=== PATIENT | male | born 1965 | race Caucasian/White ===

== ENCOUNTER 2023-04-19 18:16 | Inpatient (IN) | payer MEDICAID ==
[~2023-04-19] VITALS: Ht 172.7 cm; Wt 57.2 kg
[2023-04-19 19:09] LABS: BASOPHILS # (AUTO) 0.2 X10'3 (0-0.2); BASOPHILS % (AUTO) 1.9 % (0-1); EOSINOPHILS # (AUTO) 0.3 X10'3 (0-0.9); HEMATOCRIT 43.9 % (42.0-52.0); HEMOGLOBIN 14.7 g/dl (14.0-17.9); LYMPHOCYTES # (AUTO) 2.6 X10'3 (1.1-4.8); LYMPHOCYTES % (AUTO) 30.3 % (21-51); MEAN CORPUSCULAR HEMOGLOBIN 30.7 PG (27.0-31.0); MEAN CORPUSCULAR HGB CONC 33.6 g/dL (33.0-36.5); MEAN CORPUSCULAR VOLUME 91.6 FL (78-98); MEAN PLATELET VOLUME 7.9 FL (7.4-10.4); MONOCYTES # (AUTO) 0.3 X10'3 (0-0.9); MONOCYTES % (AUTO) 3.6 % (2-12); NEUTROPHILS # (AUTO) 5.3 X10'3 (1.8-7.7); NEUTROPHILS % (AUTO) 61.2 % (42-75); PLATELET COUNT 141 X10'3 (140-440); RED BLOOD COUNT 4.79 X10'6 (4.70-6.10); RED CELL DISTRIBUTION WIDTH 13.7 % (11.5-14.5); WHITE BLOOD COUNT 8.6 X10'3 (4.5-11.0)
[2023-04-19 19:32] LABS: ALANINE AMINOTRANSFERASE 14 U/L (12-78); ALBUMIN 3.7 G/DL (3.4-5.0); ALBUMIN/GLOBULIN RATIO 1.1 (1.1-1.5); ALKALINE PHOSPHATASE 97 IU/L (46-116); ANION GAP 5 (8-16); ASPARTATE AMINO TRANSFERASE 17 U/L (10-37); BILIRUBIN,TOTAL 0.3 MG/DL (0.1-1.0); BLOOD UREA NITROGEN 17 MG/DL (7-18); BUN/CREATININE RATIO 14.9 (10.0-20.0); CALCIUM 9.1 MG/DL (8.5-10.1); CHLORIDE 104 MMOL/L (99-107); CREATININE 1.14 MG/DL (0.60-1.10); GLUCOSE 131 MG/DL (70-104); POTASSIUM 3.9 MMOL/L (3.5-5.1); SODIUM 139 MMOL/L (135-145); TOTAL CARBON DIOXIDE 30.2 MMOL/L (24-32); TOTAL PROTEIN 7.2 G/DL (6.4-8.2); eCRCL 56 ML/MIN; eGFR 66 ML/MIN
[2023-04-19 19:39] LABS: PRO BRAIN NATRIURETIC PEPTIDE 139 PG/ML (0-125)
[2023-04-19] MEDS ORDERED: aspirin 81mg tab.chew PO ONE (22:55)
[2023-04-19] MEDS ORDERED: nitroGLYCERIN 1gm ointment UD TP ONE (22:55)
[2023-04-19 23:33] LABS: ALANINE AMINOTRANSFERASE 10 U/L (12-78); ALBUMIN 3.5 G/DL (3.4-5.0); ALBUMIN/GLOBULIN RATIO 1.1 (1.1-1.5); ALKALINE PHOSPHATASE 83 IU/L (46-116); ANION GAP 6 (8-16); ASPARTATE AMINO TRANSFERASE 15 U/L (10-37); BILIRUBIN,TOTAL 0.3 MG/DL (0.1-1.0); BLOOD UREA NITROGEN 16 MG/DL (7-18); BUN/CREATININE RATIO 18.2 (10.0-20.0); CALCIUM 9.1 MG/DL (8.5-10.1); CHLORIDE 105 MMOL/L (99-107); CREATININE 0.88 MG/DL (0.60-1.10); GLUCOSE 85 MG/DL (70-104); POTASSIUM 3.9 MMOL/L (3.5-5.1); SODIUM 139 MMOL/L (135-145); TOTAL CARBON DIOXIDE 27.7 MMOL/L (24-32); TOTAL PROTEIN 6.6 G/DL (6.4-8.2); eCRCL 73 ML/MIN; eGFR 89 ML/MIN
[2023-04-19 23:37] LABS: HEMOGLOBIN 14.3 g/dl (14.0-17.9); MEAN PLATELET VOLUME 7.9 FL (7.4-10.4)
[2023-04-19 23:39] LABS: BASOPHILS % (AUTO) 0.2 % (0-1); EOSINOPHILS # (AUTO) 0.3 X10'3 (0-0.9); EOSINOPHILS % (AUTO) 3.3 % (0-6); HEMATOCRIT 42.1 % (42.0-52.0); LYMPHOCYTES # (AUTO) 3.1 X10'3 (1.1-4.8); LYMPHOCYTES % (AUTO) 36.8 % (21-51); MEAN CORPUSCULAR HEMOGLOBIN 30.9 PG (27.0-31.0); MEAN CORPUSCULAR VOLUME 91.1 FL (78-98); MONOCYTES # (AUTO) 0.5 X10'3 (0-0.9); MONOCYTES % (AUTO) 5.4 % (2-12); NEUTROPHILS # (AUTO) 4.5 X10'3 (1.8-7.7); NEUTROPHILS % (AUTO) 54.3 % (42-75); PLATELET COUNT 129 X10'3 (140-440); RED BLOOD COUNT 4.63 X10'6 (4.70-6.10); RED CELL DISTRIBUTION WIDTH 13.7 % (11.5-14.5); WHITE BLOOD COUNT 8.3 X10'3 (4.5-11.0)
[2023-04-19 23:41] LABS: PRO BRAIN NATRIURETIC PEPTIDE 137 PG/ML (0-125)
[2023-04-19 23:46] LABS: D-DIMER < 0.19 MG/L FEU (0-0.50)
[2023-04-20] VITALS (14 sets, daily range): BP systolic 98–128; BP diastolic 63–77; PULSE 57–116; RESP 14–22; TEMP 97.3–98.9; O2SAT 96–100
[2023-04-20] MEDS ORDERED: HYDROcodone/acetaminophen 10/325mg tab PO PRN (02:15)
[2023-04-20] MEDS ORDERED: morphine 2 MG/ML inj. syringe IV PRN ×2 (02:15)
[2023-04-20] MEDS ORDERED: acetaminophen 325mg tablet PO PRN ×2 (02:15)
[2023-04-20] MEDS ORDERED: magnesium hydroxide 30ml (MOM) UD suspension PO PRN (02:15)
[2023-04-20] MEDS ORDERED: dextrose 5%-1/2 normal saline 1,000 ML IV SCH (02:15)
[2023-04-20] MEDS ORDERED: metoclopramide 5 mg/ml inj IV PRN (02:15)
[2023-04-20] MEDS ORDERED: ondansetron/PF 4mg/2ml inj IV PRN (02:15)
[2023-04-20] MEDS ORDERED: diphenhydrAMINE 25mg capsule PO PRN (02:15)
[2023-04-20] MEDS ORDERED: ondansetron 4mg rapidly disintigrating tab PO PRN (02:15)
[2023-04-20] MEDS ORDERED: HYDROcodone/acetaminophen 5mg/325mg tablet PO PRN (02:15)
[2023-04-20] MEDS ORDERED: diphenhydrAMINE 50 mg/ml inj IV PRN (02:15)
[2023-04-20] MEDS ORDERED: mag hydrox/Alum hydrox/simeth 30ml oral suspension PO PRN (02:15)
[2023-04-20] MEDS ORDERED: bisacodyl 10mg suppository rectal RC PRN (02:15)
[2023-04-20] MEDS ORDERED: metoprolol tartrate 1mg/ml inj IV PRN (02:20)
[2023-04-20] MEDS ORDERED: regadenoson 0.4mg/5ml syringe IV PRN (02:20)
[2023-04-20] MEDS ORDERED: aminophylline 250mg/10ml inj. IV PRN (02:20)
[2023-04-20] MEDS ORDERED: nitroGLYCERIN 0.4mg SUBLingual tab SL PRN (02:20)
[2023-04-20 02:46] LABS: APTT 27 SECONDS (22-32); PROTHROMBIN TIME 10.6 SECONDS (9.0-12.0)
[2023-04-20 02:57] LABS: CREATINE KINASE 83 U/L (39-308); LIPASE 74 U/L (73-393); PHOSPHORUS 3.9 MG/DL (2.3-4.5); THYROID STIMULATING HORMONE 3.35 ulU/ml (0.34-4.50)
[2023-04-20 02:58] LABS: HEMOGLOBIN A1C 5.5 % (4.5-6.2)
[2023-04-20 03:10] LABS: BILIRUBIN,URINE NEGATIVE (Neg); CLARITY,URINE CLEAR (Clear); COLOR,URINE STRAW (Yellow); GLUCOSE, URINE NEGATIVE (Neg); KETONES,URINE NEGATIVE (Neg); LEUKOCYTE ESTERASE ,URINE NEGATIVE (Neg); NITRITES, URINE NEGATIVE (Neg); OCCULT BLOOD,URINE NEGATIVE (Neg); PH,URINE 6.5 (4.8-8.0); PROTEIN,URINE NEGATIVE (Neg); UROBILINOGEN,URINE 0.2 E.U/dL (0.2-1.0)
[2023-04-20 03:21] LABS: UA COLLECTION TYPE CLN CATCH MIDSTREAM
[2023-04-20 03:27] LABS: URINE AMPHETAMINE SCREEN NEGATIVE (Neg); URINE BARBITUATE SCREEN NEGATIVE (Neg); URINE BENZODIAZEPINES SCREEN NEGATIVE (Neg); URINE CANNABINOID SCREEN POSITIVE (Neg); URINE COCAINE SCREEN NEGATIVE (Neg); URINE METHADONE SCREEN NEGATIVE (Neg); URINE OPIATE SCREEN NEGATIVE (Neg); URINE PHENCYCLIDINE SCREEN NEGATIVE (Neg)
--- NOTE | 2023-04-20 06:26 | NUR ---
Problems reprioritized. Patient report given, questions answered & plan of care reviewed with TERE Quinones.
[2023-04-20] MEDS ORDERED: pantoprazole 40mg Tablet.DR PO SCH (07:30)
[2023-04-20] MEDS ORDERED: nitroGLYCERIN 0.2mg/hour patch TD SCH (08:00)
[2023-04-20] MEDS ORDERED: atorvastatin 20mg tablet PO SCH (08:00)
[2023-04-20] MEDS ORDERED: docusate sod 100mg capsule PO SCH (08:00)
[2023-04-20] MEDS ORDERED: nicotine 21mg patch - 24 hr TD SCH (08:00)
[2023-04-20] MEDS ORDERED: aspirin 81mg, enteric-coated 1 TAB TABLET.DR PO SCH (08:00)
[2023-04-20] MEDS ORDERED: heparin, porcine 5000 units/ml vial SQ SCH (08:00)
[2023-04-20] MEDS ORDERED: PERFLUTREN PROTEIN-A MICROSPHR (Optison) 0.22 MG/ML 3ML VIAL IV ONE (08:15)
--- NOTE | 2023-04-20 14:55 | NUR ---
Malnutrition Consult: Pt admit DX CP, rule out ACS, chronic pain syndrome, and chronic tobacco/marijuana use per EMR. Pt reports 24-33 pounds wt loss but no decreased intake [employer] per RN Malnutrition Screen. Pt currently NPO; seen by RD at bedside this AM. Pt reports lives in [facility] since May 2021 after leaving long term where receives daily meals TID but also that he's "always on the road, too busy, or working outside" so mainly eats dinners. Pt reports strong appetite no issues w/ food supply and UBW ~180 pounds May when released from long term. Pt reports 145-155 pounds scaled wt when in ER this admit though current chair scaled wt 126 pounds w/ no prior scaled wt hx in EMR. Pt does appear thin w/ mild temporal wasting evident and reported ~30% UBW loss over 2 years avg ~15% per year meeting severe malnutrition criteria-DO notified. Pt provided RD contact information, Ensure ONS coupons, and verbal education in meal frequency/strategies. Pt is receiving D5/half NS at 100ml/hr providing 408 kcals/day. LBM 9 per EMR. Will monitor for PO trends once diet advance and further nutrition intervention needs this admit. Rec: 1. advance to regular diet; encourage PO 2. monitor for ONS needs once diet advances 3. consider routine MVI 4. routine bowel care 4. weekly scaled wt Addendum: 04/20/23 at [address] Amended: Links added.
--- NOTE | 2023-04-20 16:21 | NUR ---
Patient sent out for stress test and echo and tolerated well. Blood pressures have been WNL. No N/V. denies any pain at this time. MD notified of test results. Tolerating a regular diet. Walks without help. All safety measures in place and call light in reach.
[2023-04-20] MEDS ORDERED: NICO-687 TD (17:11)
[2023-04-20] MEDS ORDERED: temazepam 15mg capsule PO PRN (21:00)
== END 2023-04-20 18:25 | disposition home or self-care (01) | DRG 198 ==
LOC: ER 18:17 → ED HOLD 04-20 02:16 → ORTHO 4S 04-20 04:05
PROVIDERS: ADMIT Family Medicine; ATTEND Family Medicine
PROC: 4A02XM4 Measurement of Cardiac Total Activity, External Approach (ICD-10-PCS; principal; 2023-04-20)
PROC: 3E033HZ Introduction of Radioactive Substance into Peripheral Vein, Percutaneous Approach (ICD-10-PCS; 2023-04-20)
DX: R07.89 Other chest pain (principal); I25.110 Atherosclerotic heart disease of native coronary artery with unstable angina pectoris; D69.6 Thrombocytopenia, unspecified; I07.1 Rheumatic tricuspid insufficiency; F12.10 Cannabis abuse, uncomplicated; G89.4 Chronic pain syndrome; I25.2 Old myocardial infarction; Z72.0 Tobacco use; Z71.6 Tobacco abuse counseling
CPT/HCPCS: 36415; 71045; 71250; 78452; 80053; 80305; 81003; 82550; 83036; 83690; 83735; 83880; 84100; 84443; 84484; 85025; 85379; 85610; 85730; 87081; 93017; 93306; 99285; A9500; G0378; J2785

== ENCOUNTER 2023-05-12 21:03 | Emergency (ER) | payer MEDICAID ==
[~2023-05-12] VITALS: Ht 170.2 cm; Wt 50.2 kg
[~2023-05-12 21:03] MED LIST: NICO-687 TD
[2023-05-12 21:17] VITALS: BP 124/78; PULSE 84; RESP 16; TEMP 98; O2SAT 99
[2023-05-12 21:54] LABS: BASOPHILS # (AUTO) 0.1 X10'3 (0-0.2); BASOPHILS % (AUTO) 0.6 % (0-1); EOSINOPHILS # (AUTO) 0.2 X10'3 (0-0.9); EOSINOPHILS % (AUTO) 2.4 % (0-6); HEMATOCRIT 43.1 % (42.0-52.0); HEMOGLOBIN 14.7 g/dl (14.0-17.9); LYMPHOCYTES # (AUTO) 3.2 X10'3 (1.1-4.8); MEAN CORPUSCULAR HEMOGLOBIN 31.2 PG (27.0-31.0); MEAN CORPUSCULAR HGB CONC 34.1 g/dL (33.0-36.5); MEAN CORPUSCULAR VOLUME 91.6 FL (78-98); MEAN PLATELET VOLUME 7.8 FL (7.4-10.4); MONOCYTES # (AUTO) 0.5 X10'3 (0-0.9); MONOCYTES % (AUTO) 5.9 % (2-12); NEUTROPHILS # (AUTO) 4.3 X10'3 (1.8-7.7); NEUTROPHILS % (AUTO) 52.1 % (42-75); PLATELET COUNT 143 X10'3 (140-440); RED BLOOD COUNT 4.71 X10'6 (4.70-6.10); RED CELL DISTRIBUTION WIDTH 13.4 % (11.5-14.5); WHITE BLOOD COUNT 8.2 X10'3 (4.5-11.0)
[2023-05-12 22:06] LABS: ALANINE AMINOTRANSFERASE 24 U/L (12-78); ALBUMIN 3.9 G/DL (3.4-5.0); ALBUMIN/GLOBULIN RATIO 1.1 (1.1-1.5); ALKALINE PHOSPHATASE 91 IU/L (46-116); ANION GAP 0 (8-16); ASPARTATE AMINO TRANSFERASE 17 U/L (10-37); BILIRUBIN,TOTAL 0.3 MG/DL (0.1-1.0); BLOOD UREA NITROGEN 27 MG/DL (7-18); BUN/CREATININE RATIO 25.7 (10.0-20.0); CALCIUM 9.6 MG/DL (8.5-10.1); CHLORIDE 104 MMOL/L (99-107); CREATININE 1.05 MG/DL (0.60-1.10); GLUCOSE 85 MG/DL (70-104); POTASSIUM 4.2 MMOL/L (3.5-5.1); SODIUM 137 MMOL/L (135-145); TOTAL CARBON DIOXIDE 32.7 MMOL/L (24-32); TOTAL PROTEIN 7.3 G/DL (6.4-8.2); eCRCL 54 ML/MIN; eGFR 72 ML/MIN
[2023-05-12 22:14] LABS: PRO BRAIN NATRIURETIC PEPTIDE 135 PG/ML (0-125)
== END 2023-05-13 00:17 | disposition left against medical advice (07) ==
LOC: ER 21:03
DX: R07.89 Other chest pain (principal); Z53.21 Procedure and treatment not carried out due to patient leaving prior to being seen by health care provider
CPT/HCPCS: 36415; 71045; 80053; 83880; 84484; 85025; 93005; 99281